=== PATIENT | female | born 1985 | race Caucasian/White ===

== ENCOUNTER 2016-12-28 11:17 | Emergency (ER) | payer OTHER ==
[~2016-12-28] VITALS: Ht 175.3 cm; Wt 120.0 kg
[~2016-12-28 11:17] MED LIST: IBUP-1542 PO; PREN-39 PO
[2016-12-28 11:18] VITALS: Ht 175.3 cm; Wt 120.0 kg
[2016-12-28] MEDS ORDERED: morphine 4 MG/ML VIAL IV STA (11:28)
[2016-12-28] MEDS ORDERED: ONDANSETRON 4 MG INJ IV STA (11:28)
[2016-12-28 11:56] LABS: BASOPHILS % 0.3 % (0.0-2.0); EOSINOPHILS % 0.4 % (0.0-7.0); HEMATOCRIT 38.2 % (37.0-47.0); HEMOGLOBIN 12.5 g/dl (12.0-16.0); LYMPHOCYTES # 1.8 10^3/ul (0.8-2.9); LYMPHOCYTES % 19.4 % (15.0-51.0); MEAN CORPUSCULAR HGB CONC 32.7 g/dl (32.0-37.0); MEAN CORPUSCULAR VOLUME 85.7 fl (82.0-101.0); MEAN PLATELET VOLUME 11.1 fl (7.4-10.4); MONOCYTE # 0.6 10^3/ul (0.3-0.9); MONOCYTES % 6.2 % (0.0-11.0); NEUTROPHIL # 6.9 10^3/ul (1.6-7.5); NEUTROPHILS % 73.4 % (39.0-77.0); PLATELET COUNT 237 10^3/UL (140-415); RED BLOOD COUNT 4.46 10^6/ul (4.20-5.40); RED CELL DISTRIBUTION WIDTH 13.2 % (11.5-14.5); WHITE BLOOD COUNT 9.3 10^3/ul (4.8-10.8)
[2016-12-28 12:18] LABS: ALBUMIN 4.5 g/dl (3.3-4.9); ALBUMIN/GLOBULIN RATIO 1.36; BILIRUBIN,INDIRECT 0.4 mg/dl (0-1.1); BILIRUBIN,TOTAL 0.4 mg/dl (0.2-1.3); CALCIUM 9.5 mg/dl (8.4-10.2); CREATININE 0.59 mg/dl (0.44-1.00); TOTAL PROTEIN 7.8 g/dl (6.1-8.1)
--- NOTE | 2016-12-28 12:29 | RADRPT ---
PROCEDURE: US Abdomen Limited . CLINICAL INDICATION: Abdominal pain TECHNIQUE: Multiple real-time images were acquired of the patient's right upper quadrant abdomen u tilizing a high resolution transducer. COMPARISON: None FINDINGS: The liver measures 17.5 cm and demonstrates a normal echogenicity. The gallbladder is filled with a moderate amount of bile. Multiple echogenic, shadowing stones are identified in the gallbladder. T he largest distinct stone measures up to approximately 3.3 cm. The gallbladder wall is minimally thi ckened at 3.01 mm. No pericholecystic fluid is noted. The common bile duct measures 8.6 mm in diamet er. The visualized portions of the proximal pancreas are unremarkable. The tail of the pancreas is not well visualized. Antegrade flow is seen in the portal vein. Right kidney measures 12.2 cm. Right kidney demonstrates a normal echogenicity. No hydronephrosis, masses or stones are noted. IMPRESSION: Cholelithiasis with a minimally thickened gallbladder wall and dilated common bile duct. Findings c ould reflect early cholecystitis in the appropriate clinical scenario. If further characterization of the gallbladder is needed CT, MRI or HIDA scan could be helpful. Tail of the pancreas not well visualized. If characterization of this structure is needed repeat exa m or CT/MRI is recommended. RPTAT: AA .Van Saenz MD, Date Time Electronically viewed and signed by .Van Saenz MD, on 12/28/2016 12:28 .P/
[2016-12-28 12:38] LABS: ADD UMIC YES; UR ASCORBIC ACID NEGATIVE (NEGATIVE); UR BACTERIA MANY /HPF (NONE SEEN); UR BILIRUBIN (Dip) NEGATIVE (NEGATIVE); UR BLOOD (Dip) NEGATIVE (NEGATIVE); UR CLARITY CLEAR (CLEAR); UR COLOR YELLOW (YELLOW); UR GLUCOSE (Dip) NEGATIVE (NEGATIVE); UR KETONES (Dip) NEGATIVE (NEGATIVE); UR LEUKOCYTE ESTERASE (Dip) NEGATIVE Leu/ul (NEGATIVE); UR MUCUS FEW /HPF (NONE SEEN); UR NITRITE (Dip) POSITIVE (NEGATIVE); UR RBC 1 /HPF (0-5); UR SPECIFIC GRAVITY (Dip) 1.019 (1.003-1.030); UR TOTAL PROTEIN (Dip) NEGATIVE (NEGATIVE); UR UROBILINOGEN (Dip) NEGATIVE (NEGATIVE)
--- NOTE | 2016-12-28 12:43 | ERD ---
ER Documentation Chief Complaint Date/Time DATE: 12/28/16 TIME: 12:42 Chief Complaint Complains of epigastric pain since this am HPI This a 31-year-old female presents emergency department today complaining of abdominal pain that started this morning. Patient states that 2 months ago she had similar pain and was seen at [facility] and told she had gallstones. States that it also happened 1 month ago but the pain resolved on its own. States she has some nausea. Denies any fevers or chills. ROS All systems reviewed and are negative except as per history of present illness. Medications Home Meds Active Scripts Ondansetron Hcl* (Zofran*) 4 Mg Tablet, 4 MG PO Q6H for NAUSEA AND/OR VOMITING, #30 TAB Prov:FRANKY POND PA-C 12/28/16 Famotidine* (Pepcid*) 20 Mg Tablet, 20 MG PO BID for 10 Days, TAB Prov:FRANKY POND PA-C 12/28/16 Acetaminophen* (Tylophen*) 500 Mg Capsule, 1 CAP PO Q6H Y for PAIN AND OR ELEVATED TEMP, #30 CAP Prov:FRANKY POND PA-C 12/28/16 Hydrocodone/Acetaminophen ([place] 5-325 Tablet) 1 Each Tablet, 1 TAB PO Q6H Y for PAIN, #12 TAB Prov:FRANKY POND PA-C 12/28/16 Cephalexin* (Keflex*) 500 Mg Capsule, 500 MG PO QID for 7 Days, CAP Prov:FRANKY POND PA-C 12/28/16 Ibuprofen* (Ibuprofen*) 600 Mg Tab, 600 MG PO Q6, #20 0 Refills Prov:MARIANO SANDOVAL MD 04/14/15 Reported Medications Vits W-Ca,Fe,Fa(<1MG) ( Vitamins) 1 Tab Tablet, 1 TAB PO 10/11/12 Discontinued Scripts Cephalexin* (Keflex*) 500 Mg Capsule, 500 MG PO QID for 5 Days, CAP Prov:FRANKY POND PA-C 12/28/16 Allergies Allergies: Coded Allergies: No Known Allergy (Unverified , 04/12/15) PMhx/Soc History of Surgery: No Anesthesia Reaction: No Hx Neurological Disorder: No Hx Respiratory Disorders: No Hx Cardiac Disorders: No Hx Psychiatric Problems: No Hx Miscellaneous Medical Probl: Yes (GALLSTONES) Hx Alcohol Use: No Hx Substance Use: No Hx Tobacco Use: No Smoking Status: Never smoker Physical Exam Vitals Vital Signs Date Time Temp Pulse Resp B/P Pulse Ox O2 Delivery O2 Flow Rate FiO2 12/28/16 14:39 98.1 75 18 114/65 100 Room Air 12/28/16 11:18 98.0 76 20 125/70 100 Physical Exam Const: Obese, no acute distress Head: Atraumatic Eyes: Normal Conjunctiva ENT: Normal External Ears, Nose and Mouth. Neck: Full range of motion..~ No meningismus. Resp: Clear to auscultation bilaterally Cardio: Regular rate and rhythm, no murmurs Abd: Soft, epigastric and right upper quadrant tenderness non distended. Normal bowel sounds no tenderness McBurney Skin: No petechiae or rashes Back: No midline or flank tenderness Ext: No cyanosis, or edema Neur: Awake and alert Psych: Normal Mood and Affect Result Diagram: 12/28/16 1140 12/28/16 1140 Results 24 hrs Laboratory Tests Test 12/28/16 11:40 12/28/16 12:20 White Blood Count 9.310^3/ul Red Blood Count 4.4610^6/ul Hemoglobin 12.5g/dl Hematocrit 38.2% Mean Corpuscular Volume 85.7fl Mean Corpuscular Hemoglobin 28.0pg Mean Corpuscular Hemoglobin Concent 32.7g/dl Red Cell Distribution Width 13.2% Platelet Count 47629^3/UL Mean Platelet Volume 11.1fl Neutrophils % 73.4% Lymphocytes % 19.4% Monocytes % 6.2% Eosinophils % 0.4% Basophils % 0.3% Nucleated Red Blood Cells % 0.0/100WBC Neutrophils # 6.910^3/ul Lymphocytes # 1.810^3/ul Monocytes # 0.610^3/ul Eosinophils # 0.010^3/ul Basophils # 0.010^3/ul Nucleated Red Blood Cells # 0.010^3/ul Sodium Level 146mmol/L Potassium Level 4.0mmol/L Chloride Level 102mmol/L Carbon Dioxide Level 28mmol/L Anion Gap 20 Blood Urea Nitrogen 12mg/dl Creatinine 0.59mg/dl Glucose Level 96mg/dl Calcium Level 9.5mg/dl Total Bilirubin 0.4mg/dl Direct Bilirubin 0.00mg/dl Indirect Bilirubin 0.4mg/dl Aspartate Amino Transf (AST/SGOT) 185IU/L Alanine Aminotransferase (ALT/SGPT) 128IU/L Alkaline Phosphatase 108IU/L Total Protein 7.8g/dl Albumin 4.5g/dl Globulin 3.30g/dl Albumin/Globulin Ratio 1.36 Lipase 63U/L Urine Color YELLOW Urine Clarity CLEAR Urine pH 6.0 Urine Specific [place] 1.019 Urine Ketones NEGATIVEmg/dL Urine Nitrite POSITIVEmg/dL Urine Bilirubin NEGATIVEmg/dL Urine Urobilinogen NEGATIVEmg/dL Urine Leukocyte Esterase NEGATIVELeu/ul Urine Microscopic RBC 1/HPF Urine Microscopic WBC 0/HPF Urine Bacteria MANY/HPF Urine Mucus FEW/HPF Urine Hemoglobin NEGATIVEmg/dL Urine Glucose NEGATIVEmg/dL Urine Total Protein NEGATIVEmg/dl Current Medications Medications (Trade) Dose Ordered Sig/Lucas Route PRN Reason Start Time Stop Time Status Last Admin Dose Admin Morphine Sulfate (morphine) 4 mg ONCE STAT IV 12/28/16 11:28 12/28/16 11:30 DC 12/28/16 11:36 Ondansetron HCl (Zofran Inj) 4 mg ONCE STAT IV 12/28/16 11:28 12/28/16 11:30 DC 12/28/16 11:36 DIAGNOSTIC IMAGING REPORT Patient: ANISA HOBSON : 1985 Age: 31 Sex: F MR #: [id number] DOS: 12/28/16 1128 Ordering MD: FRANKY POND PA-C Location: [facility] Room/Bed: PROCEDURE: US Abdomen Limited . CLINICAL INDICATION: Abdominal pain TECHNIQUE: Multiple real-time images were acquired of the patient's right upper quadrant abdomen utilizing a high resolution transducer. COMPARISON: None FINDINGS: The liver measures 17.5 cm and demonstrates a normal echogenicity. The gallbladder is filled with a moderate amount of bile. Multiple echogenic, shadowing stones are identified in the gallbladder. The largest distinct stone measures up to approximately 3.3 cm. The gallbladder wall is minimally thickened at 3.01 mm. No pericholecystic fluid is noted. The common bile duct measures 8.6 mm in diameter. The visualized portions of the proximal pancreas are unremarkable. The tail of the pancreas is not well visualized. Antegrade flow is seen in the portal vein. Right kidney measures 12.2 cm. Right kidney demonstrates a normal echogenicity. No hydronephrosis, masses or stones are noted. IMPRESSION: Cholelithiasis with a minimally thickened gallbladder wall and dilated common bile duct. Findings could reflect early cholecystitis in the appropriate clinical scenario. If further characterization of the gallbladder is needed CT , MRI or HIDA scan could be helpful. Tail of the pancreas not well visualized. If characterization of this structure is needed repeat exam or CT/MRI is recommended. RPTAT: AA .Van Saenz MD, Date Time Electronically viewed and signed by .Van Saenz MD, MD on 12/28/2016 12:28 .P/ CC: FRANKY POND PA-C Procedures/[facility] This a 31-year-old female who presents the emergency department today complaining of abdominal pain that started this morning. Patient has a known history of gallstones. Patient was seen at an outside hospital I do not have record of this here in our emergency department. Given patient's history and physical exam I did obtain laboratory workup as well as imaging Laboratory workup shows no elevated white blood cell count. She is not anemic. Platelets are within normal limits. Sodium is very mildly elevated otherwise electrolytes are within normal limits. Glucose within normal limits. Bilirubin is within normal limits. Liver enzymes are elevated. Alk phos is within normal limits. Lipase within normal limits. UA shows positive nitrites. test test is negative Ultrasound shows gallstones with a minimally thickened gallbladder wall and dilated common bile duct. Findings could reflect early cholecystitis in the appropriate clinical scenario. Common bile duct measures 8.6 mm in diameter. Patient symptoms at this time is consistent with gallstones and biliary colic and urinary tract infection. Other differentials to consider choledocholithiasis versus gastritis versus gastric ulcer. Patient was given morphine, Zofran here in the emergency department and pain completely resolved. Discussed the patient with Dr. Mercado and given that her plain completely resolved he does not feel that she requires admission at this time for an MRCP. I have explained all this to the patient. I have explained her that she is to follow-up with her primary care doctor who is a new physician for her and get referral to general surgery. Patient was instructed to return for any worsening of symptoms or fevers. Patient understood. She will get a prescription for short course of [place], Tylenol, Pepcid, Zofran, Keflex At this time the patient is stable for discharge and outpatient management. Patient should follow up with their PCP in the next 1-2 days. They may return to the emergency department sooner for any persistent or worsening of symptoms. Patient understood and agreed with the plan. Departure Diagnosis: Primary Impression: Gallstones Additional Impression: UTI (urinary tract infection) Urinary tract infection type: site unspecified Hematuria presence: without hematuria Qualified Code: N39.0 - Urinary tract infection without hematuria, site unspecified Condition: FRANKY Hollins PA-C Dec 28, 2016 12:43
[2016-12-28] MEDS ORDERED: CEPH-443 PO ×2 (14:18→14:19)
[2016-12-28] MEDS ORDERED: HYDR-906 PO (14:19)
[2016-12-28] MEDS ORDERED: ACET500C5 PO (14:19)
[2016-12-28] MEDS ORDERED: ONDA4TAB8 PO (14:20)
[2016-12-28] MEDS ORDERED: FAMO-96 PO (14:20)
[2016-12-28 14:39] VITALS: BP 114/65; PULSE 75; RESP 18; TEMP 98.1
== END 2016-12-28 14:43 | disposition home or self-care (01) ==
LOC: FTE 11:17
DX: K80.20 Calculus of gallbladder without cholecystitis without obstruction (principal); N39.0 Urinary tract infection, site not specified; E66.9 Obesity, unspecified; Z68.31 Body mass index [BMI] 31.0-31.9, adult
CPT/HCPCS: 76705; 80053; 81001; 83690; 85025; J2270; J2405; 36415; 96374; 96375

== ENCOUNTER 2017-03-13 22:39 | Emergency (ER) | payer OTHER ==
[~2017-03-13] VITALS: Ht 175.3 cm; Wt 126.0 kg
[~2017-03-13 22:39] MED LIST changes: +ACET500C5 PO; +CEPH-443 PO; +FAMO-96 PO; +HYDR-906 PO; +ONDA4TAB8 PO
[2017-03-13 22:47] VITALS: Ht 175.3 cm; Wt 126.0 kg
[2017-03-13] MEDS ORDERED: morphine 4 MG/ML VIAL IV STA (23:49)
[2017-03-13] MEDS ORDERED: SOD CHLORIDE 0.9% 500 ML IV STA (23:49)
[2017-03-13] MEDS ORDERED: ONDANSETRON 4 MG INJ IV STA (23:49)
[2017-03-14 00:41] LABS: BASOPHILS % 0.3 % (0.0-2.0); EOSINOPHILS % 0.3 % (0.0-7.0); HEMATOCRIT 38.7 % (37.0-47.0); HEMOGLOBIN 12.1 g/dl (12.0-16.0); LYMPHOCYTES # 1.9 10^3/ul (0.8-2.9); LYMPHOCYTES % 14.7 % (15.0-51.0); MEAN CORPUSCULAR HEMOGLOBIN 27.2 pg (29.0-33.0); MEAN CORPUSCULAR HGB CONC 31.3 g/dl (32.0-37.0); MEAN PLATELET VOLUME 11.4 fl (7.4-10.4); MONOCYTE # 0.6 10^3/ul (0.3-0.9); MONOCYTES % 4.5 % (0.0-11.0); NEUTROPHIL # 10.3 10^3/ul (1.6-7.5); NEUTROPHILS % 79.9 % (39.0-77.0); PLATELET COUNT 206 10^3/UL (140-415); RED BLOOD COUNT 4.45 10^6/ul (4.20-5.40); WHITE BLOOD COUNT 12.9 10^3/ul (4.8-10.8)
[2017-03-14 00:54] LABS: ADD UMIC YES; UR ASCORBIC ACID NEGATIVE (NEGATIVE); UR BACTERIA FEW /HPF (NONE SEEN); UR BILIRUBIN (Dip) NEGATIVE (NEGATIVE); UR BLOOD (Dip) NEGATIVE (NEGATIVE); UR CLARITY SLIGHTLY CLOUDY (CLEAR); UR COLOR YELLOW (YELLOW); UR GLUCOSE (Dip) NEGATIVE (NEGATIVE); UR KETONES (Dip) NEGATIVE (NEGATIVE); UR LEUKOCYTE ESTERASE (Dip) NEGATIVE Leu/ul (NEGATIVE); UR MUCUS FEW /HPF (NONE SEEN); UR NITRITE (Dip) POSITIVE (NEGATIVE); UR RBC 1 /HPF (0-5); UR SPECIFIC GRAVITY (Dip) 1.023 (1.003-1.030); UR SQUAMOUS EPITHELIAL CELL FEW /HPF (FEW); UR TOTAL PROTEIN (Dip) NEGATIVE (NEGATIVE); UR UROBILINOGEN (Dip) NEGATIVE (NEGATIVE)
--- NOTE | 2017-03-14 01:20 | RADRPT ---
PROCEDURE: ULTRASOUND LIMITED ABDOMEN CLINICAL INDICATION: 32-year-old female with abdominal pain. TECHNIQUE: Multiple sonographic of the right upper quadrant of the abdomen were obtained. The imag es were reviewed on a PACS workstation. COMPARISON: None. FINDINGS: The pancreas is partially visualized and is otherwise without abnormal echogenicity. The liver displays diffuse increased echogenicity consistent with fatty infiltration. The liver souleymane ures 18.2 cm in length. No evidence of intrahepatic biliary ductal dilatation is seen. The portal a nd hepatic veins are unremarkable. The gallbladder contains multiple shadowing stones with the largest measuring 3.4 cm. The gallbladde r wall thickness is within normal limits measuring 2.0 mm. No pericholecystic fluid is seen. The com mon bile duct measures 10.4 mm and is markedly dilated. The right kidney displays normal echogenicity. The right kidney measures 11.6 cm in maximal length. No caliectasis or hydronephrosis is seen. There is a probable mid right renal cyst measuring 1.4 x 1 .1 cm. No free fluid is seen. IMPRESSION: 1. Hepatic steatosis. 2. Cholelithiasis with markedly dilated common bile duct. 3. Probable mid right renal cyst. .Corky Sena MD, MD Date Time Electronically viewed and signed by .Corky Sena MD, on 03/14/2017 01:20 .Rebel/
[2017-03-14] MEDS ORDERED: CEFTRIAXONE 1 GM/50 ML (PMX) 50 ML IVPB STA (01:44)
[2017-03-14 01:48] LABS: ALBUMIN 3.8 g/dl (3.3-4.9); ALBUMIN/GLOBULIN RATIO 1.11; BILIRUBIN,INDIRECT 0.1 mg/dl (0-1.1); BILIRUBIN,TOTAL 0.1 mg/dl (0.2-1.3); CALCIUM 9.2 mg/dl (8.4-10.2); CREATININE 0.61 mg/dl (0.44-1.00); POTASSIUM 4.6 mmol/L (3.5-5.1); TOTAL PROTEIN 7.2 g/dl (6.1-8.1)
--- NOTE | 2017-03-14 01:57 | ERD ---
ER Documentation Chief Complaint Chief Complaint bib self for mid epigastric pain, hx of galstones (MICHELLE ARIAS PA-C) HPI This is a 32-year-old female with history of cholelithiasis presenting to the emergency department complaining of moderate to severe epigastric and right upper quadrant abdominal pain that radiates to her back for 1 day. Patient states that the pain has worsened when she ate a meal at 4 PM. Patient admits to having severe nausea with few episodes of nonbilious non-bloody vomiting. She denies fevers, diarrhea. She states that she has taken [place] for pain however she vomited the medication. (MICHELLE ARIAS PA-C) ROS All systems reviewed and are negative except as per history of present illness. (MICHELLE ARIAS PA-C) Medications Home Meds Active Scripts Ondansetron Hcl* (Zofran*) 4 Mg Tablet, 4 MG PO Q6H for NAUSEA AND/OR VOMITING, #30 TAB Prov:FRANKY POND PA-C 12/28/16 Famotidine* (Pepcid*) 20 Mg Tablet, 20 MG PO BID for 10 Days, TAB Prov:FRANKY POND PA-C 12/28/16 Acetaminophen* (Tylophen*) 500 Mg Capsule, 1 CAP PO Q6H Y for PAIN AND OR ELEVATED TEMP, #30 CAP Prov:FRANKY POND PA-C 12/28/16 Hydrocodone/Acetaminophen ([place] 5-325 Tablet) 1 Each Tablet, 1 TAB PO Q6H Y for PAIN, #12 TAB Prov:FRANKY POND PA-C 12/28/16 Cephalexin* (Keflex*) 500 Mg Capsule, 500 MG PO QID for 7 Days, CAP Prov:FRANKY POND PA-C 12/28/16 Ibuprofen* (Ibuprofen*) 600 Mg Tab, 600 MG PO Q6, #20 0 Refills Prov:MARIANO SANDOVAL MD 04/14/15 Reported Medications Vits W-Ca,Fe,Fa(<1MG) ( Vitamins) 1 Tab Tablet, 1 TAB PO 10/11/12 Allergies Allergies: Coded Allergies: No Known Allergy (Unverified , 04/12/15) PMhx/Soc Medical and Surgical Hx: pt denies Surgical Hx History of Surgery: No Anesthesia Reaction: No Hx Neurological Disorder: No Hx Respiratory Disorders: No Hx Cardiac Disorders: No Hx Psychiatric Problems: No Hx Miscellaneous Medical Probl: Yes (GALLSTONES) Hx Alcohol Use: No Hx Substance Use: No Hx Tobacco Use: No Smoking Status: Never smoker (MICHELLE ARIAS PA-C) Physical Exam Vitals Vital Signs Date Time Temp Pulse Resp B/P Pulse Ox O2 Delivery O2 Flow Rate FiO2 03/14/17 03:38 98.1 72 20 104/55 100 Room Air 03/13/17 22:47 98.4 81 18 136/81 100 (RICK PACHECO MD) Physical Exam GENERAL: well-developed/well-nourished, in no apparent distress, non-toxic appearing. obese HENT: NC/AT EYES: Conjunctiva normal NECK: Supple, no lymphadenopathy PULM: CTA bilaterally, no rales, rhonchi, or wheezing heard CV: Normal S1S2, RRR, good capillary refill GI: Soft, non-distended, tender to palpation right upper quadrant Normal bowel sounds, no masses or organomegaly felt on exam No gross peritonitis, no bruits Negative Rovsing, positive Mccloud, negative McBurney's point, Negative CVAT BACK: No masses EXT: No clubbing, cyanosis, or edema NEURO: Alert and Orientated SKIN: Intact, normal turgor PSYCH: Normal mood and mentation (MICHELLE ARIAS PA-C) Result Diagram: 03/14/17 0021 03/14/17 0115 Results 24 hrs Laboratory Tests Test 03/14/17 00:21 03/14/17 01:15 White Blood Count 12.910^3/ul Red Blood Count 4.4510^6/ul Hemoglobin 12.1g/dl Hematocrit 38.7% Mean Corpuscular Volume 87.0fl Mean Corpuscular Hemoglobin 27.2pg Mean Corpuscular Hemoglobin Concent 31.3g/dl Red Cell Distribution Width 13.0% Platelet Count 17062^3/UL Mean Platelet Volume 11.4fl Neutrophils % 79.9% Lymphocytes % 14.7% Monocytes % 4.5% Eosinophils % 0.3% Basophils % 0.3% Nucleated Red Blood Cells % 0.0/100WBC Neutrophils # 10.310^3/ul Lymphocytes # 1.910^3/ul Monocytes # 0.610^3/ul Eosinophils # 0.010^3/ul Basophils # 0.010^3/ul Nucleated Red Blood Cells # 0.010^3/ul Urine Color YELLOW Urine Clarity SLIGHTLY CLOUDY Urine pH 5.0 Urine Specific [place] 1.023 Urine Ketones NEGATIVEmg/dL Urine Nitrite POSITIVEmg/dL Urine Bilirubin NEGATIVEmg/dL Urine Urobilinogen NEGATIVEmg/dL Urine Leukocyte Esterase NEGATIVELeu/ul Urine Microscopic RBC 1/HPF Urine Microscopic WBC 3/HPF Urine Squamous Epithelial Cells FEW/HPF Urine Bacteria FEW/HPF Urine Mucus FEW/HPF Urine Hemoglobin NEGATIVEmg/dL Urine Glucose NEGATIVEmg/dL Urine Total Protein NEGATIVEmg/dl Sodium Level 141mmol/L Potassium Level 4.6mmol/L Chloride Level 105mmol/L Carbon Dioxide Level 31mmol/L Anion Gap 10 Blood Urea Nitrogen 17mg/dl Creatinine 0.61mg/dl Glucose Level 120mg/dl Calcium Level 9.2mg/dl Total Bilirubin 0.1mg/dl Direct Bilirubin 0.00mg/dl Indirect Bilirubin 0.1mg/dl Aspartate Amino Transf (AST/SGOT) 113IU/L Alanine Aminotransferase (ALT/SGPT) 76IU/L Alkaline Phosphatase 87IU/L Total Protein 7.2g/dl Albumin 3.8g/dl Globulin 3.40g/dl Albumin/Globulin Ratio 1.11 Lipase 105U/L Current Medications Medications (Trade) Dose Ordered Sig/Lucas Route PRN Reason Start Time Stop Time Status Last Admin Dose Admin Sodium Chloride (NS) 500 ml @ 500 mls/hr Q1H STAT IV 03/13/17 23:49 03/14/17 00:48 DC 03/14/17 00:36 Morphine Sulfate (morphine) 4 mg ONCE STAT IV 03/13/17 23:49 03/13/17 23:51 DC 03/14/17 00:36 Ondansetron HCl 4 mg 4 mg ONCE STAT IV 03/13/17 23:49 03/13/17 23:51 DC 03/14/17 00:36 Ceftriaxone Sodium (Rocephin) 50 ml @ 100 mls/hr ONCE STAT IVPB 03/14/17 01:44 03/14/17 02:13 DC 03/14/17 02:13 (RICK PACHECO MD) Procedures/MDM This is a 32-year-old female with history of cholelithiasis presenting to the emergency department with cholelithiasis with a 10.4 marked common bile duct dilation, without any evidence of sepsis, cholecystitis or cholangitis, pancreatitis. Patient is stable to be transferred to [place] where she is capitated at. Patient is afebrile, nontoxic with stable vital signs. She had mild leukocytosis likely due to stress reaction. Mild elevated transaminases. Normal bilirubin. Lipase was normal. In the ED, patient was given 1 liter of fluids, morphine, and Zofran. I have reassessed and she had improvement.Urinalysis was positive for infection therefore she was given 1 g of ceftriaxone Gallbladder US 1. Hepatic steatosis. 2. Cholelithiasis with markedly dilated common bile duct. 3. Probable mid right renal cyst. (MICHELLE ARIAS PA-C) Attending addendum: Patient is a 32-year-old female with evidence of choledocholithiasis and UTI. She has stable vital signs and no other signs of acute medical condition. I discussed the case with Dr. Arriaza, accepting physician at [facility], and the patient was accepted for transfer. (RICK PACHECO MD) Departure Diagnosis: Primary Impression: Common bile duct dilation Condition: Stable MICHELLE ARIAS PA-C Mar 14, 2017 01:57 RICK PACHECO MD Mar 14, 2017 06:06
[2017-03-14 06:29] VITALS: BP 121/80; PULSE 97; RESP 16; TEMP 98.8
== END 2017-03-14 06:29 | disposition short-term general hospital (02) ==
LOC: FTE 22:39
DX: K83.8 Other specified diseases of biliary tract (principal); K76.0 Fatty (change of) liver, not elsewhere classified
CPT/HCPCS: 36415; 76705; 80053; 81001; 83690; 85025; 87040; 96365; 96375; J0696; J2270; J2405; J7040; Z7502